=== PATIENT | female | born 1995 | race Two or more races ===

== ENCOUNTER 2019-07-09 10:24 | Observation (INO) | payer SELFPAY ==
[2014-10-22 15:00] VITALS: BP 128/84
[~2019-07-09 10:24] MED LIST: ACET-704 PO; IBUP-1060 PO; PNV1TABL25 PO
[2019-07-09] MEDS ORDERED: IV RINGERS,LACTATED 1000ML 1,000 ML IV PRN (10:30)
[2019-07-09 12:14] LABS: CLARITY,URINE HAZY; COLOR,URINE YELLOW
[2019-07-09 12:15] LABS: BACTERIA,URINE MANY /HPF (0-FEW); BILIRUBIN,URINE NEGATIVE (NEG); NITRITE,URINE NEGATIVE (NEG); PH,URINE 6.5 (<5.0-8.0); PROTEIN,URINE TRACE mg/dL (NEG-TRACE); RBC,URINE OCC /HPF (0-2); SQUAMOUS EPITHELIAL CELL,UR MANY /LPF; UROBILINOGEN,URINE 0.2 mg/dL (0.2 mg/dL)
== END 2019-07-09 13:22 | disposition home or self-care (01) ==
LOC: 3 SO LND 10:24
PROVIDERS: ADMIT Obstetrics & Gynecology; ATTEND Obstetrics & Gynecology
DX: O36.8130 Decreased fetal movements, third trimester, not applicable or unspecified (principal); O26.893 Other specified pregnancy related conditions, third trimester; R51 Headache; R42 Dizziness and giddiness; Z3A.37 37 weeks gestation of pregnancy; Z79.899 Other long term (current) drug therapy
CPT/HCPCS: 81001; 87086; G0378; G0379; 59025

== ENCOUNTER 2020-07-22 10:28 | Emergency (ER) | payer SELFPAY ==
[~2020-07-22] VITALS: Ht 160 cm; Wt 94.4 kg
[~2020-07-22 10:28] MED LIST changes: +DOCU-153 PO; +OXYC1TAB15 PO
[2020-07-22 10:48] LABS: BILIRUBIN,URINE NEGATIVE (NEG); CLARITY,URINE CLEAR; COLOR,URINE YELLOW; NITRITE,URINE NEGATIVE (NEG); PROTEIN,URINE NEGATIVE (NEG-TRACE); UROBILINOGEN,URINE 0.2 mg/dL (0.2 mg/dL)
[2020-07-22 10:57] LABS: BACTERIA,URINE FEW /HPF (0-FEW); RBC,URINE 0 /HPF (0-2)
--- NOTE | 2020-07-22 11:08 | PHYS DOC ---
Past Medical History Past Medical History: Pneumonia, Other Additional Past Medical Histor: miscarriage Past Surgical History: Smoking Status: Never Smoker Alcohol Use: Occasionally General Adult EDM: Chief Complaint: PELVIC PAIN HPI: HPI: 24-year-old female presents emergency department today with pelvic pain. She describes pelvic pain that is sharp shooting and suprapubic pain that is nonradiating and without leaving factors. It started 3 days ago. It is associated with vaginal bleeding. She recently had a test that had a faint blue line testing positive and is wondering whether she is having a miscarriage. She has a family history of ectopic pregnancies but has never had one personally. She has had 1 miscarriage and has 3 living children who were born at full-term and otherwise this is her only other . She denies any exposure to STDs or changes in vaginal discharge. She denies any lesions or ulcerations of the area. She has not had any fevers nausea vomiting or changes in her bowel habits. She denies dysuria or polyuria. Review of systems a for chest pain shortness of breath fevers chills rash headache vomiting. All other review of systems negative. ED course: 24-year-old female presenting with suprapubic abdominal pain. Initial urine test is negative. Blood work obtained along with gonorrhea and Chlamydia testing which was a self swab and a pelvic ultrasound. Work-up here is unremarkable. Pelvic ultrasound shows a hemorrhagic cyst in the left ovary. Quantitative hCG of 1. We will have the patient follow-up with her steam engineer or PCP within 1 to 2 days for repeat quantitative hCG. Patient is O+ blood type. G and C testing pending at this time, but will be back for few days. Heart Score: C/O Chest Pain: No Risk Factors: Risk Factors: DM, Current or recent (<one month) smoker, HTN, HLP, family history of CAD, obesity. Risk Scores: Score 0 - 3: 2.5% MACE over next 6 weeks - Discharge Home Score 4 - 6: 20.3% MACE over next 6 weeks - Admit for Clinical Observation Score 7 - 10: 72.7% MACE over next 6 weeks - Early Invasive Strategies Allergies: Allergies: Allergies Coded Allergies Type Severity Reaction Last Updated Verified No Known Drug Allergies 07/22/20 No Physical Exam: PE: Constitutional: Well developed, well nourished, no acute distress, non-toxic appearance. [] HENT: Normocephalic, atraumatic, bilateral external ears normal, oropharynx moist, no oral exudates, nose normal. [] Eyes: PERRLA, EOMI, conjunctiva normal, no discharge. [] Neck: Normal range of motion, no tenderness, supple, no stridor. [] Cardiovascular:Heart rate regular rhythm, no murmur [] Lungs & Thorax: Bilateral breath sounds clear to auscultation [] Abdomen: Bowel sounds normal, soft, mildly tender in the suprapubic region. no masses, no pulsatile masses. [] Negative McBurney's point. Negative Benitez sign. No rebound tenderness or guarding. exam deferred. Skin: Warm, dry, no erythema, no rash. [] Back: No tenderness, no CVA tenderness. [] Extremities: No tenderness, no cyanosis, no clubbing, ROM intact, no edema. [] Neurologic: Alert and oriented X 3, normal motor function, normal sensory function, no focal deficits noted. [] Psychologic: Affect normal, judgement normal, mood normal. [] Current Patient Data: Labs: Laboratory Tests Test 07/22/20 10:35 07/22/20 10:41 Urine Collection Type Void Urine Color Yellow Urine Clarity Clear Urine pH 6.0 (<5.0-8.0) Urine Specific [place] >=1.030 (1.000-1.030) Urine Protein Negative mg/dL (NEG-TRACE) Urine Glucose (UA) Negative mg/dL (NEG) Urine Ketones (Stick) 40 mg/dL (NEG) Urine Blood Negative (NEG) Urine Nitrite Negative (NEG) Urine Bilirubin Negative (NEG) Urine Urobilinogen Dipstick 0.2 mg/dL (0.2 mg/dL) Urine Leukocyte Esterase Negative (NEG) Urine RBC 0 /HPF (0-2) Urine WBC 1-4 /HPF (0-4) Urine Squamous Epithelial Cells Many /LPF Urine Bacteria Few /HPF (0-FEW) Urine Mucus Marked /LPF POC Urine HCG, Qualitative Hcg negative (Negative) Vital Signs: Vital Signs Date Time Temp Pulse Resp B/P (MAP) Pulse Ox O2 Delivery O2 Flow Rate FiO2 07/22/20 10:40 98.2 74 20 109/54 (72) 98 Room Air 98.2 EKG: EKG: [] Radiology/Procedures: Radiology/Procedures: [] Course & Med Decision Making: Course & Med Decision Making Pertinent Labs and Imaging studies reviewed. (See chart for details) [] Autumn Disclaimer: Autumn Disclaimer: This electronic medical record was generated, in whole or in part, using a voice recognition dictation system. Departure Departure Impression: Primary Impression: Pelvic pain Disposition: HOME / SELF CARE / HOMELESS Condition: STABLE Referrals: NO PCP (PCP) Patient Instructions: Pelvic Pain, Female Additional Instructions: EMERGENCY DEPARTMENT GENERAL DISCHARGE INSTRUCTIONS Follow-up with your primary physician or OB usability specialist in 1 to 2 days for reexamination and repeat blood test. Return to the emergency department if you have any new or concerning findings. Thank you for coming to [facility] Emergency Department (ED) today and trusting us with you care. We trust that you had a positive experience in our Emergency Department. If you wish to speak to the department management, you may call the Director at [phone]. Follow up is important in emergency/acute care visits. This condition should be evaluated by your primary care physician and any necessary consulting services for continued management within a few days (1-2) after discharge. Return to the emergency department if you have any new or concerning symptoms including but not limited to fever, chills, nausea, vomiting, intractable pain, any new rashes, chest pain, shortness of breath, uncontrolled bleeding, difficulty breathing, and/or vision loss. 1. Do you have a private Doctor? If you do not have a private doctor, please ask for a resource list of physicians or clinics that may be able to assist you with follow up care. 2. If a lab test or culture has been done and does not come back immediately, your results will be reviewed and you will be notified if you need a change in treatment. 3. Your care today has been supervised by a physician who is specially trained in emergency care. Many problems require more than one evaluation for a complete diagnosis and treatment. We recommend that you schedule your follow up appointment as recommended to ensure complete treatment of you illness or injury. If you are unable to obtain follow up care and continue to have a problem, or if your condition worsens, we recommend that you return to the ED. 4. We are not able to safely determine your condition over the phone nor are we able to give sound medical advice over the phone. For these safety reasons, if you call for medical advice we will ask you to come to the ED for further evaluation. IF YOUR SYMPTOMS WORSEN OR NEW SYMPTOMS DEVELOP, OR YOU HAVE CONCERNS ABOUT YOUR CONDITION; OR IF YOUR CONDITION WORSENS WHILE YOU ARE WAITING FOR YOUR FOLLOW UP APPOINTMENT; EITHER CONTACT YOUR PRIMARY CARE DOCTOR, THE PHYSICIAN WHOSE NAME AND NUMBER YOU WERE GIVEN, OR RETURN TO THE ED IMMEDIATELY. EMMANUEL MAK MD July 22, 2020 11:08
[2020-07-22 11:27] LABS: BASO % 0 % (0-3); EOS # 0.1 x10^3/uL (0.0-0.7); EOS % 1 % (0-3); HEMATOCRIT 32.2 % (36.0-47.0); HEMOGLOBIN 10.7 g/dL (12.0-15.5); LYMPH # 1.9 x10^3/uL (1.0-4.8); LYMPH % 23 % (24-48); MEAN CORPUSCULAR HEMOGLOBIN 27 pg (25-35); MEAN CORPUSCULAR HGB CONC 33 g/dL (31-37); MEAN CORPUSCULAR VOLUME 80 fL (79-100); MONO # 0.5 x10^3/uL (0.0-1.1); MONO % 7 % (0-9); NEUT # 5.6 x10^3/uL (1.8-7.7); NEUT % 69 % (31-73); PLATELET COUNT 325 x10^3/uL (140-400); RED BLOOD COUNT 4.01 x10^6/uL (3.50-5.40); RED CELL DISTRIBUTION WIDTH 16.2 % (11.5-14.5); WHITE BLOOD COUNT 8.1 x10^3/uL (4.0-11.0)
[2020-07-22 11:41] LABS: CALCIUM 8.4 mg/dL (8.5-10.1); CREATININE 0.6 mg/dL (0.6-1.0); GFR 123.9; POTASSIUM 3.6 mmol/L (3.5-5.1)
[2020-07-22 11:43] LABS: ALBUMIN 3.7 g/dL (3.4-5.0); ALBUMIN/GLOBULIN RATIO 1.1 (1.0-1.7); TOTAL BILIRUBIN 0.4 mg/dL (0.2-1.0)
--- NOTE | 2020-07-22 12:10 | RAD ---
EXAM: Pelvic ultrasound HISTORY: Pelvic pain. COMPARISON: None. FINDINGS: Sonographic evaluation of the pelvis was performed transabdominally and transvaginally. The uterus is anteverted and measures 8.4 x 5.8 x 3.8 cm. The endometrial stripe measures 9 mm. No ma sses are identified. There is a small amount of free fluid. The right ovary measures 3.3 x 2.0 x 1.5 cm. The left ovary measures 3.8 x 2.3 x 2.2 cm. A hypoechoic mass in the left ovary with no internal flow measures 3.1 x 2.0 cm and likely reflects a hemorrhagic cyst/follicle. There is normal Doppler flow bilaterally. IMPRESSION: 1. 3.1 x 2.0 cm hemorrhagic cyst/follicle in the left ovary. This is most likely benign. Follow-up co uld be performed in 3 months to confirm resolution if there is persistent concern. Electronically signed by: Lissa Gordon MD (07/22/2020 12:08 PM) [facility]
[2020-07-22 12:17] VITALS: BP 116/67
[2020-07-23 15:13] LABS: GC PROBE Negative (Negative)
== END 2020-07-22 12:40 | disposition home or self-care (01) ==
LOC: ER 10:28
DX: R10.2 Pelvic and perineal pain (principal); Z98.890 Other specified postprocedural states
CPT/HCPCS: 36415; 76830; 76856; 80053; 81001; 81025; 83690; 84702; 85025; 87491; 87591; 99284

== ENCOUNTER 2021-01-13 17:32 | Emergency (ER) | payer SELFPAY ==
[~2021-01-13] VITALS: Ht 160 cm; Wt 105.0 kg
[~2021-01-13 17:32] MED LIST changes: +DOCU-148 PO; -DOCU-153 PO
--- NOTE | 2021-01-13 18:36 | ED.ADGEN ---
Past Medical History Past Medical History: Pneumonia, Other Additional Past Medical Histor: miscarriage Past Surgical History: No Surgical History Smoking Status: Never Smoker Alcohol Use: None General Adult EDM: Chief Complaint: VAGINAL BLEEDING HPI: HPI: Patient is a 25 year old female G6, P3, SAB x2, with 2 weeks of vaginal bleeding. 8 weeks by LMP, has seen her ENVIRONMENTAL PROTECTION GEOLOGIST but has not had ultrasound done to confirm IUP. Patient states she has not had gross blood but is noticing pain on the top of her when she wipes. Denies any vaginal discharge or dysuria. Patient states that she has not had intercourse since the bleeding started. Says she occasionally has some low abdominal cramps mostly on the right. Has section 1 year ago. No other abdominal surgeries. Is vaccinated against Covid. Per chart review her blood type is O+ Review of Systems: Review of Systems: All other systems within normal limits except for as noted in the HPI Allergies: Allergies: Allergies Coded Allergies Type Severity Reaction Last Updated Verified No Known Drug Allergies 01/13/21 No Physical Exam: PE: Constitutional: Well developed, well nourished, no acute distress, non-toxic appearance. [] HENT: Normocephalic, atraumatic, bilateral external ears normal, nose normal. [] Eyes: PERRLA, conjunctiva normal, no discharge. [] Neck: No rigidity, supple, no stridor. [] Cardiovascular: Regular rate and rhythm, brisk cap refill [] Lungs & Thorax: Non labored symmetric respirations, no tachypnea or respiratory distress [] Abdomen: Soft, nondistended, nontender. Skin: Warm, dry, no erythema, no rash. [] Back: Unremarkable Extremities: No deformities, range of motion grossly intact, no lower extremity edema [] Neurologic: Alert and oriented X 3, no focal deficits noted. [] Psychologic: Affect normal, judgement normal, mood normal. [] Current Patient Data: Labs: Laboratory Tests Test 01/13/21 18:40 White Blood Count 9.3 x10^3/uL (4.0-11.0) Red Blood Count 4.64 x10^6/uL (3.50-5.40) Hemoglobin 12.4 g/dL (12.0-15.5) Hematocrit 38.2 % (36.0-47.0) Mean Corpuscular Volume 82 fL (79-100) Mean Corpuscular Hemoglobin 27 pg (25-35) Mean Corpuscular Hemoglobin Concent 33 g/dL (31-37) Red Cell Distribution Width 18.1 % (11.5-14.5) H Platelet Count 272 x10^3/uL (140-400) Neutrophils (%) (Auto) 65 % (31-73) Lymphocytes (%) (Auto) 28 % (24-48) Monocytes (%) (Auto) 7 % (0-9) Eosinophils (%) (Auto) 1 % (0-3) Basophils (%) (Auto) 0 % (0-3) Neutrophils # (Auto) 6.0 x10^3/uL (1.8-7.7) Lymphocytes # (Auto) 2.6 x10^3/uL (1.0-4.8) Monocytes # (Auto) 0.6 x10^3/uL (0.0-1.1) Eosinophils # (Auto) 0.1 x10^3/uL (0.0-0.7) Basophils # (Auto) 0.0 x10^3/uL (0.0-0.2) Urine Collection Type Unknown Urine Color Yellow Urine Clarity Clear Urine pH 6.5 (<5.0-8.0) Urine Specific [place] 1.020 (1.000-1.030) Urine Protein Negative mg/dL (NEG-TRACE) Urine Glucose (UA) Negative mg/dL (NEG) Urine Ketones (Stick) Negative mg/dL (NEG) Urine Blood Negative (NEG) Urine Nitrite Negative (NEG) Urine Bilirubin Negative (NEG) Urine Urobilinogen Dipstick 0.2 mg/dL (0.2 mg/dL) Urine Leukocyte Esterase Negative (NEG) Urine RBC 0 /HPF (0-2) Urine WBC Rare /HPF (0-4) Urine Squamous Epithelial Cells Occ /LPF Urine Amorphous Sediment Present /HPF Urine Bacteria Few /HPF (0-FEW) Urine Mucus Mod /LPF Urine Test Positive (NEG) Maternal Serum HCG Beta Subunit 48080 mIU/mL (0-5) H Laboratory Tests 01/13/21 18:40 Microbiology 01/13/21 Wet Prep - Final, Complete Vital Signs: Vital Signs Date Time Temp Pulse Resp B/P (MAP) Pulse Ox O2 Delivery O2 Flow Rate FiO2 01/13/21 18:23 98.3 95 15 137/85 (102) 99 Room Air 98.3 EKG: EKG: [] Heart Score: C/O Chest Pain: No Risk Factors: Risk Factors: DM, Current or recent (<one month) smoker, HTN, HLP, family history of CAD, obesity. Risk Scores: Score 0 - 3: 2.5% MACE over next 6 weeks - Discharge Home Score 4 - 6: 20.3% MACE over next 6 weeks - Admit for Clinical Observation Score 7 - 10: 72.7% MACE over next 6 weeks - Early Invasive Strategies Radiology/Procedures: Radiology/Procedures: [facility] [address] [place] [address] IMAGING REPORT Signed PATIENT: TOVA QUIROZ IACCOUNT: [id number] : 1995 LOCATION: ER AGE: 25 SEX: F EXAM STATUS: REG ER ORD. PHYSICIAN: HARMEET CAMARENA MD REASON: bleeding RLQ pain PROCEDURE: OB <14 WKS W/TV EXAM: OBSTETRIC ULTRASOUND, <14 WEEKS. HISTORY: Vaginal bleeding and right pelvic pain in . COMPARISON: None. FINDINGS: Sonographic evaluation of the pelvis was performed transvaginally. The uterus is anteverted and measures 9.5 x 6.4 x 5.4 cm. There is a single intrauterine gestation measuring 7 weeks 2 days. heart rate is 144 bpm. A yolk sac is visualized. The gestational sac is regular. There is no subchorionic collection. The right ovary measures 3.0 x 2.7 x 2.1 cm. The left ovary measures 2.2 x 1.6 x 1.1 cm. There is normal Doppler flow bilaterally. There is no adnexal mass. There is no significant free fluid. IMPRESSION: 1. Single intrauterine gestation measuring 7 weeks 2 days. heart rate 144 bpm. Electronically signed by: Lissa Gordon MD (01/13/2021 10:28 PM) [facility] DICTATED and SIGNED BY: RENEE GORDON MD DATE: 01/13/21 [id number] [] Course & Med Decision Making: Course & Med Decision Making RUN DATE: 01/13/21 [facility] *LIVE* PAGE 1 RUN TIME: 2054 Specimen Inquiry PATIENT: TOVA QUIROZ I ACCT: [id number] LOC: ALEXX U: [id number] AGE/SX: ROOM: RE01/13/[address]: HARMEET CAMARENA MD : 1995 BED: DIS: STATUS: REG ALEXX TLOC: ------ ------ SPEC #: [id number] AURELIA: 01/13/21 STATUS: COMP REQ #: [id number] RECD: 01/13/[address]: HARMEET CAMARENA MD SOURCE: VAGINAL ENTR: 01/13/[address] [facility]: AMERICO TEE SPDESC: ORDERED: WET PREP COMMENTS: Has specimen been collected/obtained? Y Procedure Result WET PREP Final YEAST NONE SEEN TRICHOMONAS NONE SEEN CLUE CELLS CLUE CELLS PRESENT ALTERED CORINA ALTERED CORINA PRESENT SUGGESTIVE OF BACTERIAL VAGINOSIS WBCS OCCASIONAL SQUAMOUS EPS MANY Patient signed out pelvic exam and ultrasound due to the bleeding, discussed options for self swabbing and talked about risks and benefits of ultrasound. Patient agrees to having ultrasound done. mEgo Disclaimer: mEgo Disclaimer: This electronic medical record was generated, in whole or in part, using a voice recognition dictation system. Departure Departure Impression: Primary Impression: Bacterial vaginosis in Disposition: HOME / SELF CARE / HOMELESS Condition: STABLE Referrals: NO PCP (PCP) Patient Instructions: Bacterial Vaginosis Scripts Metronidazole (METRONIDAZOLE) 250 Mg Tablet 1 TAB PO TID for antibiotic for 7 Days, #21 TAB Prov: HARMEET CAMARENA MD 01/13/21 HARMEET CAMARENA MD Jan 13, 2021 18:36
[2021-01-13 18:50] LABS: BASO % 0 % (0-3); BILIRUBIN,URINE NEGATIVE (NEG); CLARITY,URINE CLEAR; COLOR,URINE YELLOW; EOS # 0.1 x10^3/uL (0.0-0.7); EOS % 1 % (0-3); HEMATOCRIT 38.2 % (36.0-47.0); HEMOGLOBIN 12.4 g/dL (12.0-15.5); LYMPH # 2.6 x10^3/uL (1.0-4.8); LYMPH % 28 % (24-48); MEAN CORPUSCULAR HEMOGLOBIN 27 pg (25-35); MEAN CORPUSCULAR HGB CONC 33 g/dL (31-37); MEAN CORPUSCULAR VOLUME 82 fL (79-100); MONO # 0.6 x10^3/uL (0.0-1.1); MONO % 7 % (0-9); NEUT % 65 % (31-73); NITRITE,URINE NEGATIVE (NEG); PH,URINE 6.5 (<5.0-8.0); PLATELET COUNT 272 x10^3/uL (140-400); PROTEIN,URINE NEGATIVE (NEG-TRACE); RED BLOOD COUNT 4.64 x10^6/uL (3.50-5.40); RED CELL DISTRIBUTION WIDTH 18.1 % (11.5-14.5); UROBILINOGEN,URINE 0.2 mg/dL (0.2 mg/dL); WHITE BLOOD COUNT 9.3 x10^3/uL (4.0-11.0)
[2021-01-13 18:51] LABS: U PREG PATIENT POSITIVE (NEG)
[2021-01-13 18:56] LABS: AMORPHOUS SEDIMENT,UR PRESENT /HPF
[2021-01-13 18:57] LABS: BACTERIA,URINE FEW /HPF (0-FEW); RBC,URINE 0 /HPF (0-2); WBC,URINE RARE /HPF (0-4)
[2021-01-13 22:00] VITALS: BP 120/78
--- NOTE | 2021-01-13 22:31 | RAD ---
EXAM: OBSTETRIC ULTRASOUND, <14 WEEKS. HISTORY: Vaginal bleeding and right pelvic pain in . COMPARISON: None. FINDINGS: Sonographic evaluation of the pelvis was performed transvaginally. The uterus is anteverted and measures 9.5 x 6.4 x 5.4 cm. There is a single intrauterine gestation me asuring 7 weeks 2 days. heart rate is 144 bpm. A yolk sac is visualized. The gestational sac is regular. There is no subchorionic collection. The right ovary measures 3.0 x 2.7 x 2.1 cm. The left ovary measures 2.2 x 1.6 x 1.1 cm. There is nor mal Doppler flow bilaterally. There is no adnexal mass. There is no significant free fluid. IMPRESSION: 1. Single intrauterine gestation measuring 7 weeks 2 days. heart rate 144 bpm. Electronically signed by: Lissa Gordon MD (01/13/2021 10:28 PM) [facility]
[2021-01-13] MEDS ORDERED: METR-111 PO (22:50)
[2021-01-17 23:28] LABS: GC PROBE Negative (Negative)
== END 2021-01-13 22:50 | disposition home or self-care (01) ==
LOC: ER 17:32
DX: O23.591 Infection of other part of genital tract in pregnancy, first trimester (principal); B96.89 Other specified bacterial agents as the cause of diseases classified elsewhere; Z3A.08 8 weeks gestation of pregnancy
CPT/HCPCS: 36415; 76801; 76817; 81001; 81025; 84702; 85025; 87491; 87591; 99284; Q0111